=== PATIENT | male | born 1970 | race Caucasian/White ===

== ENCOUNTER 2019-10-13 10:43 | Day surgery (SDC) | payer OTHER ==
[~2019-10-13] VITALS: Ht 175.3 cm; Wt 128.3 kg
[~2019-10-13 10:43] MED LIST: AMLO10TAB PO; ASPI81CH33 PO; CLAR5CHW PO; CLON0.2T PO; FISH500C OR; FOLI20CA PO; GEMF600T PO; GEMF600T5 PO; HYDR50TA7 PO; LYRI75CA PO; METO50TA7 PO; MULTCAP PO; NIAC100T9 PO; NS 1,000 ML IV SCH; PAME50CA PO; RITA10TA OR; RITA20TA PO; VENL100T OR; VENL150C43 PO; XANA0.25 PO
[2019-10-13] MEDS ORDERED: LIDOCAINE 2% INJ 100 MG/5 ML SDV (FOR ANES.) As Ordered ONE (10:53)
[2019-10-13] MEDS ORDERED: PROPOFOL 200 MG/20 ML VIAL As Ordered ONE (10:53)
--- NOTE | 2019-10-13 12:18 | ROOR ---
Patient Name: Dewayne Forte Procedure Date: 10/13/2019 11:53 AM Date of : 1970 Age: 49 Room: [facility] [place] Gender: Male Note Status: Finalized Procedure: Total Colonoscopy to Cecum + ileoscopy + Bx Indications: Rectal bleeding, Change in bowel habits, Clinically significant diarrhea of unexplained origin Providers: Rufus Harvey MD Referring MD: Gregory Celis Requesting Provider: Medicines: Monitored Anesthesia Care Complications: No immediate complications. Procedure: Pre-Anesthesia Assessment: - The heart rate, respiratory rate, oxygen saturations, blood pressure, adequacy of pulmonary ventilation, and response to care were monitored throughout the procedure. The Colonoscope was introduced through the anus and advanced to the terminal ileum, with identification of the appendiceal orifice and IC valve. The colonoscopy was performed without difficulty. The patient tolerated the procedure well. The quality of the bowel preparation was good. Findings: The perianal and digital rectal examinations were normal. Non-bleeding internal hemorrhoids were found during retroflexion. The hemorrhoids were small and Grade I (internal hemorrhoids that do not prolapse). A small polyp was found in the rectum. The polyp was sessile. The polyp was removed with a jumbo cold forceps. Resection and retrieval were complete. No other significant abnormalities were identified in a careful examination of the remainder of the colon. Biopsies for histology were taken with a cold forceps from the ascending colon, transverse colon and descending colon for evaluation of microscopic colitis. The exam was otherwise without abnormality on direct and retroflexion views. The terminal ileum appeared normal. Impression: - Non-bleeding internal hemorrhoids. - One small polyp in the rectum, removed with a jumbo cold forceps. Resected and retrieved. - The examination was otherwise normal on direct and retroflexion views. - The examined portion of the ileum was normal. - Biopsies were taken with a cold forceps from the ascending colon, transverse colon and descending colon for evaluation of microscopic colitis. - The exam was otherwise normal to the cecum. Recommendation: - Patient has a contact number available for emergencies. The signs and symptoms of potential delayed complications were discussed with the patient. Return to normal activities tomorrow. Written discharge instructions were provided to the patient. - High fiber diet. - Discharge patient to home. - Continue present medications. - Await pathology results. - Telephone GI clinic for pathology results in 1 week. - Repeat colonoscopy in 10 years for screening purposes. - Return to referring physician. - The findings and recommendations were discussed with the patient's family. Rufus Harvey MD Rufus Harvey MD 10/13/2019 12:17:41 PM Electronically signed by Rufus Harvey MD Number of Addenda: 0 Note Initiated On: 10/13/2019 11:53 AM Estimated Blood Loss: Estimated blood loss: none.
[2019-10-13 12:53] VITALS: BP 160/92
== END 2019-10-13 12:53 | disposition home or self-care (01) ==
LOC: M OPP 10:43
PROVIDERS: ATTEND Internal Medicine Gastroenterology
DX: K64.0 First degree hemorrhoids (principal); K62.1 Rectal polyp; K62.5 Hemorrhage of anus and rectum; K63.5 Polyp of colon; R19.4 Change in bowel habit; R19.7 Diarrhea, unspecified; G47.30 Sleep apnea, unspecified; Z79.82 Long term (current) use of aspirin; Z79.899 Other long term (current) drug therapy; F17.210 Nicotine dependence, cigarettes, uncomplicated

== ENCOUNTER → 2022-09-15 | Outpatient (REF) | payer OTHER ==
[~2022-09-15] MED LIST changes: -NS 1,000 ML IV SCH
== END ==
LOC: M LAB REF 11:35
PROVIDERS: ATTEND Physician Assistant Medical
DX: R05.9 Cough, unspecified (principal)

== ENCOUNTER → 2022-11-26 | Outpatient (REF) | payer OTHER | LOC: M LAB REF 12:00 | PROVIDERS: ATTEND Physician Assistant | DX: R19.7 Diarrhea, unspecified (principal); R10.829 Rebound abdominal tenderness, unspecified site ==

== ENCOUNTER → 2025-06-12 | Outpatient (REF) | payer OTHER | LOC: M SFHCDERM 08:46 | PROVIDERS: ATTEND Physician Assistant | DX: L72.0 Epidermal cyst (principal) ==